=== PATIENT | male | born 1990 | race Caucasian/White ===

== ENCOUNTER 2017-05-15 12:12 | Inpatient (IN) | payer BC, OTHER ==
[~2017-05-15] VITALS: Ht 177.8 cm; Wt 72.6 kg
[2017-05-15 13:00] VITALS: BP 155/100
[2017-05-15] MEDS ORDERED: DICYCLOMINE HCL 20 MG TABLET PO PRN (13:15)
[2017-05-15] MEDS ORDERED: ONDANSETRON 4 MG/2 ML VIAL IM PRN (13:15)
[2017-05-15] MEDS ORDERED: MAG HYDROX/AL HYDROX/SIMETH 30 ML LIQUID UDC PO PRN (13:15)
[2017-05-15] MEDS ORDERED: MIRALAX 17 GM POWD.PACK PO PRN (13:15)
[2017-05-15] MEDS ORDERED: IBUPROFEN 400 MG TABLET PO PRN (13:15)
[2017-05-15] MEDS ORDERED: ONDANSETRON ODT 4 MG TAB.RAPDIS SL PRN (13:15)
[2017-05-15] MEDS ORDERED: LORAZEPAM 1 MG TABLET PO PRN (13:15)
[2017-05-15] MEDS ORDERED: LORAZEPAM 2 MG/1 ML VIAL IM PRN (13:15)
[2017-05-15] MEDS ORDERED: LOPERAMIDE HCL 2 MG CAPSULE PO PRN ×2 (13:15)
[2017-05-15] MEDS ORDERED: THIAMINE HCL 200 MG/2 ML VIAL IM ONE (13:15)
[2017-05-15] MEDS ORDERED: MAGNESIUM HYDROXIDE 30 ML LIQUID UDC PO PRN (13:15)
[2017-05-15] MEDS ORDERED: ACETAMINOPHEN 325 MG TABLET PO PRN (13:15)
[2017-05-15 15:00] LABS: BILIRUBIN,TOTAL 0.7 mg/dL (0.2-1.0); CREATININE 1.1 mg/dL (0.6-1.3); MAGNESIUM 1.9 mg/dL (1.8-2.4); TOTAL PROTEIN, SERUM 8.5 g/dL (6.4-8.2)
[2017-05-15] MEDS: GABAPENTIN 300 MG CAPSULE PO SCH ×2 (15:00→20:21)
[2017-05-15 15:01] LABS: BASOPHILS # (AUTO) 0.1 K/uL (0.0-8.0); BASOPHILS % (AUTO) 0.7 % (0.0-2.0); EOSINOPHILS % (AUTO) 0.4 % (0.0-7.0); HEMOGLOBIN 17.9 G/DL (14.0-18.0); LYMPHOCYTES % (AUTO) 12.6 % (20.5-51.5); MEAN CORPUSCULAR HEMOGLOBIN 31.8 UUG (27.0-31.0); MEAN CORPUSCULAR HGB CONC 34 g/dL (32.0-37.0); MEAN CORPUSCULAR VOLUME 92.4 FL (82.0-92.0); MONOCYTES # (AUTO) 0.5 K/UL (0.1-1.30); MONOCYTES % (AUTO) 6.4 % (0.0-11.0); NEUTROPHILS # (AUTO) 6.3 K/UL (1.8-8.9); NEUTROPHILS % (AUTO) 79.9 % (38.5-71.5); PLATELET COUNT (AUTO) 216 K/UL (150-450); RED BLOOD CELL COUNT(AUTO) 5.62 MIL/UL (4.7-6.1); WHITE BLOOD COUNT (AUTO) 7.9 K/UL (4.0-11.2)
[2017-05-15] MEDS: LORAZEPAM 1 MG TABLET PO PRN ×3 (15:07→20:21)
[2017-05-15 15:18] LABS: *AMPHETAMINE, URINE NEGATIVE (NEGATIVE); *BARBITURATE, URINE NEGATIVE (NEGATIVE); *CANNABINOID, URINE NEGATIVE (NEGATIVE); *COCCAINE, URINE NEGATIVE (NEGATIVE); *OPIATE, URINE NEGATIVE (NEGATIVE); *PHENCYCLIDINE SCREEN,URINE NEGATIVE (NEGATIVE)
[2017-05-15 15:24] LABS: THYROID STIMULATING HORMONE 1.19 mIU/mL (0.358-3.740)
[2017-05-15] MEDS: hydrALAZINE HCL 25 MG TABLET PO PRN (19:49)
[2017-05-15 20:00] VITALS: BP 163/103
[2017-05-15 21:00] VITALS: BP 149/103
[2017-05-15 21:10] VITALS: BP 133/93
[2017-05-16] VITALS (7 sets, daily range): BP systolic 132–150; BP diastolic 89–106
[2017-05-16] MEDS: GABAPENTIN 300 MG CAPSULE PO SCH ×3 (08:18→20:38)
[2017-05-16] MEDS: THIAMINE HCL 100 MG TABLET PO SCH (08:18)
[2017-05-16] MEDS: FOLIC ACID 1 MG TABLET PO SCH (08:18)
[2017-05-16] MEDS: LORAZEPAM 1 MG TABLET PO PRN (08:18)
[2017-05-16] MEDS: MULTIVITAMINS,THERAPEUTIC TABLET PO SCH (08:18)
[2017-05-16] MEDS ORDERED: TUBERCULIN,PURIF.PROT.DERIV. 5 TU/0.1 ML TEST ID ONE (09:00)
[2017-05-16] MEDS: DOCUSATE SODIUM 250 MG CAPSULE PO SCH (09:00)
[2017-05-16] MEDS: LORAZEPAM 1 MG TABLET PO SCH ×3 (12:20→20:38)
[2017-05-16] MEDS ORDERED: LORAZEPAM 1 MG TABLET PO SCH (13:00)
[2017-05-16 13:09] LABS: HEPATITIS B SURFACE AG Negative (Negative)
[2017-05-16] MEDS: hydrALAZINE HCL 25 MG TABLET PO PRN (16:55)
[2017-05-17] VITALS: BP 141/95
[2017-05-17 04:00] VITALS: BP 123/95
[2017-05-17 08:00] VITALS: BP 136/90
[2017-05-17] MEDS: LORAZEPAM 1 MG TABLET PO SCH ×3 (08:44→20:11)
[2017-05-17] MEDS: MULTIVITAMINS,THERAPEUTIC TABLET PO SCH (08:44)
[2017-05-17] MEDS: FOLIC ACID 1 MG TABLET PO SCH (08:44)
[2017-05-17] MEDS: THIAMINE HCL 100 MG TABLET PO SCH (08:45)
[2017-05-17] MEDS: GABAPENTIN 300 MG CAPSULE PO SCH ×3 (08:45→20:11)
[2017-05-17] MEDS: DOCUSATE SODIUM 250 MG CAPSULE PO SCH (09:00)
[2017-05-17 12:54] VITALS: BP 138/98
[2017-05-17 16:00] VITALS: BP 162/102
[2017-05-17] MEDS: hydrALAZINE HCL 25 MG TABLET PO PRN (18:06)
[2017-05-17 20:00] VITALS: BP 144/99
[2017-05-18 01:00] VITALS: BP 119/83
[2017-05-18 08:35] VITALS: BP 145/95
[2017-05-18] MEDS: MULTIVITAMINS,THERAPEUTIC TABLET PO SCH (08:38)
[2017-05-18] MEDS: GABAPENTIN 300 MG CAPSULE PO SCH ×3 (08:39→21:13)
[2017-05-18] MEDS: DOCUSATE SODIUM 250 MG CAPSULE PO SCH (08:39)
[2017-05-18] MEDS: LORAZEPAM 1 MG TABLET PO SCH ×4 (08:39→21:12)
[2017-05-18] MEDS: THIAMINE HCL 100 MG TABLET PO SCH (08:39)
[2017-05-18] MEDS: FOLIC ACID 1 MG TABLET PO SCH (08:39)
[2017-05-18 12:17] VITALS: BP 138/95
[2017-05-18 16:29] VITALS: BP 139/89
[2017-05-18 20:00] VITALS: BP 134/94
[2017-05-19] VITALS: BP 117/74
[2017-05-19 08:24] VITALS: BP 126/78
[2017-05-19] MEDS: DOCUSATE SODIUM 250 MG CAPSULE PO SCH (08:25)
[2017-05-19] MEDS: GABAPENTIN 300 MG CAPSULE PO SCH ×3 (08:26→20:40)
[2017-05-19] MEDS: LORAZEPAM 1 MG TABLET PO SCH ×3 (08:26→20:40)
[2017-05-19] MEDS: THIAMINE HCL 100 MG TABLET PO SCH (08:26)
[2017-05-19] MEDS: FOLIC ACID 1 MG TABLET PO SCH (08:26)
[2017-05-19] MEDS: MULTIVITAMINS,THERAPEUTIC TABLET PO SCH (08:26)
[2017-05-19 12:46] VITALS: BP 121/91
[2017-05-19 14:06] VITALS: BP 121/91
[2017-05-19 17:28] VITALS: BP 124/90
[2017-05-19 20:00] VITALS: BP 127/90
[2017-05-20 08:31] VITALS: BP 127/85
[2017-05-20] MEDS: LORAZEPAM 1 MG TABLET PO SCH ×2 (08:43→20:39)
[2017-05-20] MEDS: FOLIC ACID 1 MG TABLET PO SCH (08:43)
[2017-05-20] MEDS: MULTIVITAMINS,THERAPEUTIC TABLET PO SCH (08:43)
[2017-05-20] MEDS: DOCUSATE SODIUM 250 MG CAPSULE PO SCH (08:43)
[2017-05-20] MEDS: GABAPENTIN 300 MG CAPSULE PO SCH ×3 (08:43→20:39)
[2017-05-20] MEDS: THIAMINE HCL 100 MG TABLET PO SCH (08:43)
[2017-05-20 13:04] VITALS: BP 123/85
[2017-05-20 17:46] VITALS: BP 123/85
[2017-05-20 20:00] VITALS: BP 129/86
[2017-05-21] VITALS: BP 136/87
[2017-05-21 04:00] VITALS: BP 119/83
[2017-05-21 08:00] VITALS: BP 137/86
[2017-05-21] MEDS: MULTIVITAMINS,THERAPEUTIC TABLET PO SCH (08:19)
[2017-05-21] MEDS: FOLIC ACID 1 MG TABLET PO SCH (08:19)
[2017-05-21] MEDS: DOCUSATE SODIUM 250 MG CAPSULE PO SCH (08:19)
[2017-05-21] MEDS: GABAPENTIN 300 MG CAPSULE PO SCH ×3 (08:19→21:58)
[2017-05-21] MEDS: THIAMINE HCL 100 MG TABLET PO SCH (08:20)
[2017-05-21 12:00] VITALS: BP 136/86
[2017-05-21] MEDS ORDERED: HYDR25TA86 PO (12:27)
[2017-05-21] MEDS ORDERED: GABA-534 PO (12:27)
[2017-05-21 14:23] LABS: *AMPHETAMINE, URINE NEGATIVE (NEGATIVE); *BARBITURATE, URINE NEGATIVE (NEGATIVE); *CANNABINOID, URINE NEGATIVE (NEGATIVE); *COCCAINE, URINE NEGATIVE (NEGATIVE); *OPIATE, URINE NEGATIVE (NEGATIVE); *PHENCYCLIDINE SCREEN,URINE NEGATIVE (NEGATIVE)
[2017-05-21 16:00] VITALS: BP 137/70
[2017-05-21 20:00] VITALS: BP 121/84
[2017-05-22] VITALS: BP 115/65
[2017-05-22 07:54] VITALS: BP 130/81
[2017-05-22 08:00] VITALS: BP 130/81
[2017-05-22] MEDS: GABAPENTIN 300 MG CAPSULE PO SCH (08:25)
[2017-05-22] MEDS: THIAMINE HCL 100 MG TABLET PO SCH (08:25)
[2017-05-22] MEDS: MULTIVITAMINS,THERAPEUTIC TABLET PO SCH (08:25)
[2017-05-22] MEDS: DOCUSATE SODIUM 250 MG CAPSULE PO SCH (08:26)
[2017-05-22] MEDS: FOLIC ACID 1 MG TABLET PO SCH (08:26)
== END 2017-05-22 09:43 | disposition other institution (70) | DRG 895 ==
LOC: SRC 12:18
PROVIDERS: ADMIT Internal Medicine; ATTEND Internal Medicine
PROC: HZ2ZZZZ Detoxification Services for Substance Abuse Treatment (ICD-10-PCS; principal; 2017-05-15)
PROC: HZ41ZZZ Group Counseling for Substance Abuse Treatment, Behavioral (ICD-10-PCS; 2017-05-16)
PROC: HZ31ZZZ Individual Counseling for Substance Abuse Treatment, Behavioral (ICD-10-PCS; 2017-05-17)
DX: F10.230 Alcohol dependence with withdrawal, uncomplicated (principal); Y90.3 Blood alcohol level of 60-79 mg/100 ml; Z91.013 Allergy to seafood; Z81.1 Family history of alcohol abuse and dependence; Z81.8 Family history of other mental and behavioral disorders
CPT/HCPCS: 36415; 70030-TC; 80307; 83690; 83735; 84443; 85025; 86580; 86592; 86705; 86803; 87340; 87806; A4663; G0480; J3411